=== PATIENT | female | born 2000 | race Caucasian/White ===

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

== ENCOUNTER 2022-01-23 11:18 | Emergency (ER) | payer OTHER, SELFPAY ==
[2022-01-23 11:27] VITALS: BP 124/71; PULSE 87; RESP 16; TEMP 36.6; O2SAT 100
--- NOTE | 2022-01-23 11:32 | ED.LOWEXIN ---
HPI - Extremity Injury (Lower) General Chief Complaint: Wound/Laceration Stated Complaint: right big toenail falling off Time Seen by Provider: 01/23/22 11:32 Source: patient Mode of arrival: ambulatory Limitations: no limitations History of Present Illness HPI Narrative: Ms. Morgan is a 21-year-old female patient presenting to the clinic today with complaints of her toenail falling off on her right big toe. She reports this has been going on for approximately 1.5 month after her toe was stepped on while playing basketball. She reports she saw her school provider and they stated that her toenail will fall off on its own however it is still intact after the 1.5 months and it is becoming more painful. States that her [employer] boots may have also caused some trauma to her toe as well. No obvious sign of infection to the right great toe. Related Data Home Medications Medication Instructions Recorded Confirmed lisdexamfetamine [Vyvanse] 40 mg PO DAILY 09/19/21 01/23/22 norgestimate-ethinyl estradiol 0.25 tablet PO DAILY 09/19/21 01/23/22 [[place]] Allergies Allergy/AdvReac Type Severity Reaction Status Date / Time Penicillins Allergy Rash Verified 01/23/22 11:30 Review of Systems Review of Systems: Pertinent positives per HPI. Patient denies any fever, chills, rash, headache, visual changes, dizziness, cough, runny nose, sore throat, shortness of breath, chest pain, palpitations, nausea, vomiting, diarrhea, constipation, abdominal pain, or any urinary issues. PMFSH Comments At the time of my signature, I reviewed and agree with the nursing past medical, surgical, social, and family history. There is no relevant family history pertinent to the patient complaint. Exam Narrative: General: Well-developed, well nourished, in no apparent distress Head: Normocephalic, atraumatic. Cardio: Regular rate and rhythm, s1 and s2 normal, no murmur appreciated. Resp: Clear to auscultation bilaterally, no rhonchi, rales, wheezing or rubs. Musculoskeletal: No deformity, mild tenderness to palpation over the right great toenail, the toenail appears to be partially avulsed as the medial proximal toenail has been pulled out of the nailbed/cuticle however there are still 3 points of the toenail that are attached, right great toe grossly normal range of motion, no edema, redness, or drainage no cyanosis, normal gait and station Course Course Emergency Course: Portions of this record may have been created with voice recognition software. Level of Care: Express Care Visit Vital Signs Vital signs: Vital Signs Temperature 36.6 C 01/23/22 11:27 Pulse Rate 87 01/23/22 11:27 Respiratory Rate 16 01/23/22 11:27 Blood Pressure 124/71 01/23/22 11:27 Pulse Oximetry 100 01/23/22 11:27 Temperature 36.6 C 01/23/22 11:27 Pulse Rate 87 01/23/22 11:27 Respiratory Rate 16 01/23/22 11:27 Blood Pressure 124/71 01/23/22 11:27 Pulse Oximetry 100 01/23/22 11:27 Vital signs reviewed MDM - Extremity Injury (Lower) MDM Narrative Medical decision making narrative: At the time of visit patient is resting comfortably in the exam chair. She has a partial avulsion of the right great toe. This does not appear to be infected or swollen however I will go ahead and give her a podiatry referral for potential removal as this is causing her more pain. Supportive measures were discussed with patient she voiced understanding of discharge instructions Differential Diagnosis Differential diagnosis: Likely other (Partial avulsion of toenail, complete avulsion of toenail, toe fracture, soft tissue injury) Discharge Plan Discharge Clinical Impression: Avulsion of toenail of right foot Patient Disposition: Home, Self-Care Condition: Stable Instructions: Nail Avulsion (ED) Additional Instructions: Diagnosis is partial avulsion of right great toenail May apply Band-Aid to the toenail to stabilize it May apply triple antibi
== END 2022-01-23 11:48 | disposition home or self-care (01) ==
PROVIDERS: Emergency Provider Nurse Practitioner Family
DX: S91.201A Unspecified open wound of right great toe with damage to nail, initial encounter (principal); W50.0XXA Accidental hit or strike by another person, initial encounter; Y93.67 Activity, basketball
CPT/HCPCS: 99212; G0463

== ENCOUNTER → 2023-10-29 14:15 | Outpatient (CLI) | payer OTHER, SELFPAY ==
--- NOTE | ~2023-10-29 | CT_ITS ---
EXAMINATION: CT sinus wo con DATE: 10/29/2023 14:27 INDICATION: Chronic sinusitis. Surgical planning. TECHNIQUE: Computed tomography (CT) of the paranasal sinuses was performed without contrast. Iterativ e reconstruction technique was employed. Exam dose: 425.50 mGy-cm total exam DLP. COMPARISON: None FINDINGS: Mild leftward bowing of the nasal septum. The inferior nasal turbinates are moderately prom inent but relatively symmetric. Middle nasal turbinates are unremarkable. The left maxillary ostium and infundibulum are largely opacified. Relatively narrow right infundibulum appears patent with minimal mucoperiosteal thickening of the rig ht maxillary ostium. There is minimal mucoperiosteal thickening of both maxillary sinuses approximately 6 mm anterolateral left maxillary mucous retention cyst. There is patchy soft tissue thickening of the ethmoid air cells bilaterally. The frontal sinuses and sphenoid sinuses are normally developed and aerated. The mastoid air cells are normally developed and aerated bilaterally. Middle and inner ear apparatus appear unremarkable bilaterally. IMPRESSION: The left maxillary ostium and infundibulum are largely occluded by soft tissue thickenin g Mild soft tissue thickening at the right maxillary ostium; right infundibulum is narrow. Patent and p atchy bilateral ethmoid soft tissue thickening Mild mucosal periosteal thickening of the maxillary sinuses, 6 mm left maxillary mucous retention cys t Mild leftward bowing of nasal septum Reviewed, dictated and finalized at [facility]. Reviewed, dictated and finalized at [facility]. [employer] IMPRESSION: The left maxillary ostium and infundibulum are largely occluded by soft tissue thickening Mild soft tissue thickening at the right maxillary ostium; right infundibulum i s narrow. Patent and patchy bilateral ethmoid soft tissue thickening Mild mucosal periosteal thickening of the maxillary sinuses, 6 mm left maxillar y mucous retention cyst Mild leftward bowing of nasal septum
== END ==
DX: J34.89 Other specified disorders of nose and nasal sinuses (principal); J32.9 Chronic sinusitis, unspecified; J33.8 Other polyp of sinus
CPT/HCPCS: 70486